=== PATIENT | male | born 1970 | race American Indian/Alaskan Native ===

== ENCOUNTER 2021-06-14 22:36 | Emergency (ER) | payer SELFPAY ==
[2021-06-15 00:36] LABS: Bilirubin,Urine NEG (Negative); Blood,Urine SM (Negative); Color,Urine Yellow (Yellow); Mucus,Urine FEW /HPF; Protein,Urine <15 mg/dL mg/dL (Negative); RBC,Urine < 1.0 /HPF (0.0-6.0); Urobilinogen,Urine < 2.0 mg/dL (<2.0)
[2021-06-15 06:10] VITALS: BP 182/96
--- NOTE | 2021-06-15 06:25 | Emergency Department Report ---
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 Reports no fever, chills, sweats but no testicular pain, no hematuria no flank pain no nausea, no vomiting. Reports no risky sexual behavior no suspicion of an STD he is aware however that he may have developed a urinary tract infection or having blood sugar issues so decided to check in emergency department. MD Complaint: dysuria -: Gradual Location: penis Improves with: none Worsens with: urination dysuria. denies: discharge, swelling, urinary retention, blood in urine, nausea/vomiting, incontinence - Related Data Allergies Allergy/AdvReac Type Severity Reaction Status Date / Time No Known Allergies Allergy Unverified 06/14/21 23:29 ED Review of Systems ROS: Stated complaint: PAINFUL AND FREQUENT URINATION Other details as noted in HPI Comment: All other systems reviewed and negative ED Physical Exam - General Limitations: No Limitations General appearance: alert, in no apparent distress - Head Head exam: Present: atraumatic, normocephalic - Eye Eye exam: Present: normal appearance - ENT ENT exam: Present: mucous membranes moist - Neck Neck exam: Present: normal inspection - Respiratory Respiratory exam: Present: normal lung sounds bilaterally. Absent: respiratory distress - Cardiovascular Cardiovascular Exam: Present: regular rate, normal rhythm. Absent: systolic murmur, diastolic murmur, rubs, gallop - GI/Abdominal GI/Abdominal exam: Present: soft, normal bowel sounds. Absent: tenderness, guarding, rebound, hypoactive bowel sounds - Rectal Rectal exam: Present: deferred - exam: Present: normal inspection - Extremities Exam Extremities exam: Present: normal inspection - Back Exam Back exam: Present: normal inspection. Absent: CVA tenderness (R), CVA ten derness (L) - Neurological Exam Neurological exam: Present: alert, oriented X3 - Psychiatric Psychiatric exam: Present: normal affect, normal mood - Skin Skin exam: Present: warm, dry, intact, normal color. Absent: rash ED Course Vital Signs 06/14/21 23:10 Temperature 98.5 F Pulse Rate 94 H Respiratory 18 Rate Blood Pressure 205/126 O2 Sat by Pulse 99 Oximetry ED Medical Decision Making - Lab Data Lab Results 06/15/21 Range/Units Unknown Urine Color Yellow (Yellow) Urine Turbidity Clear (Clear) Urine pH 5.0 (5.0-7.0) Ur Specific [place] 1.018 (1.003-1.030) Urine Protein <15 mg/dl (Negative) mg/dL Urine Glucose (UA) Neg (Negative) mg/dL Urine Ketones 20 (Negative) mg/dL Urine Blood Sm (Negative) Urine Nitrite Neg (Negative) Urine Bilirubin Neg (Negative) Urine Urobilinogen < 2.0 (<2.0) mg/dL Ur Leukocyte Esterase Neg (Negative) Urine WBC (Auto) 1.0 (0.0-6.0) /HPF Urine RBC (Auto) < 1.0 (0.0-6.0) /HPF U Epithel Cells (Auto) < 1.0 (0-13.0) /HPF Urine Mucus Few /HPF - Medical Decision Making 51-year-old male with my department complaining of dysuria of an unknown etiology. His blood sugar was found to be less than 100 and his urinalysis was unremarkable. Suspicion for for STD was not of a concern for misted [place]. Did discuss with him the contact the possibility of prostatic issue, urethritis, urethral narrowing, Critical care attestation.: If time is entered above; I have spent that time in minutes in the direct care of this critically ill patient, excluding procedure time. ED Disposition Clinical Impression: Dysuria Disposition: 01 HOME / SELF CARE / HOMELESS Is pt being admited?: No Does the pt Need Aspirin: No Condition: Stable Instructions: Urodynamic Testing, Dysuria Additional Instructions: Be sure to follow-up with your PCP or urology for further evaluation of your dysuria. Although your test showed relatively normal emergency department today stating to be reevaluated for cystitis, urethritis, BPH, STD, urethral stricture or other issues Referrals: LOVE FRANCISCO MD [Primary Care Provider] - 3-5 Days
== END 2021-06-15 06:10 | disposition home or self-care (01) ==
LOC: ED 22:36
DX: R30.0 Dysuria (principal); R35.0 Frequency of micturition
CPT/HCPCS: 81001; 82962; 99283